=== PATIENT | female | born 1955 | race Caucasian/White ===

== ENCOUNTER 2016-11-21 13:33 | Emergency (ER) | payer OTHER ==
[~2016-11-21] VITALS: Ht 167.6 cm; Wt 70.3 kg
[2016-11-21 13:44] VITALS: BP 144/96; PULSE 78; RESP 16; TEMP 97.4; O2SAT 96
[2016-11-21] MEDS ORDERED: CHOLESTEROL MED (13:56)
[2016-11-21] MEDS ORDERED: LISD1CAP PO (13:56)
[2016-11-21] MEDS ORDERED: METO25TA3 PO (13:56)
[2016-11-21] MEDS ORDERED: VYBRID (13:56)
[2016-11-21] MEDS ORDERED: PROPARACAINE HCL 0.5% OPHT SOLN 15 ML BTL LEFT EYE ONE (14:15)
--- NOTE | 2016-11-21 14:17 | PD ---
HPI Chief Complaint: ENT Complaint Time Seen by Provider: 14:03 Travel History International Travel<30 days: No Contact w/Intl Traveler<30days: No Traveled to known affect area: No History of Present Illness HPI 60yo F with PMH of HTN and HLD presents to the ED with c/o left eye pain after her granddaughter who is 14 months and sitting on her lap and poked her left eye with a straw. Pt states she rinsed out her eye and had tearing after. Pt complains of a foreign body sensation and went to [facility] but they said they dont see eye. Pt then blew her nose and had epistaxis from her right nostril which has stopped. Denies any decreased vision, anticoagulation, fever, chest pain, sob, n/v, abdominal pain. PFSH Past Medical History ADHD: Yes High Cholesterol: Yes Hypertension: Yes Tetanus Vaccination: > 5 Years Influenza Vaccination: No ?: Not Past Surgical History Section: Yes Social History Alcohol Use: Yes (5 BEERS DAILY) Tobacco Use: No Substance Use: No Allergies-Medications (Allergen,Severity, Reaction): Coded Allergies: Codeine (Verified Allergy, Severe, Itching, 11/21/16) Reported Meds & Prescriptions Reported Meds & Active Scripts Active Reported [Cholesterol Med] [Vybrid] Vyvanse (Lisdexamfetamine Dimesylate) 10 Mg Cap Unknown Dose PO DIRECTED Metoprolol Tartrate 25 Mg Tab Unknown Dose PO DIRECTED Review of Systems Except as stated in HPI: all other systems reviewed are Neg Physical Exam Narrative GENERAL: 60yo F in mild distress. SKIN: Focused skin assessment warm/dry. HEAD: Atraumatic. Normocephalic. EYES: Pupils equal and round at 3mm bilaterally. No scleral icterus. No injected conjunctiva. No foreign body under upper and lower eyelids. Vision 20 /25 in both eyes. Wood's lamp exam: +Small semi circular flourescein uptake in mid cornea. ENT: Right nostril: dried blood. No active bleeding. Throat: No blood in pharynx. Throat clear. NECK: Trachea midline. No JVD. CARDIOVASCULAR: Regular rate and rhythm. No murmur appreciated. RESPIRATORY: No accessory muscle use. Clear to auscultation. Breath sounds equal bilaterally. GASTROINTESTINAL: Abdomen soft, non-tender, nondistended. MUSCULOSKELETAL: No obvious deformities. No clubbing. No cyanosis. No edema. NEUROLOGICAL: Awake and alert. No obvious cranial nerve deficits. Motor grossly within normal limits. Normal speech. PSYCHIATRIC: Appropriate mood and affect; insight and judgment normal. Data Data Last Documented VS Vital Signs Date Time Temp Pulse Resp B/P Pulse Ox O2 Delivery O2 Flow Rate FiO2 11/21/16 13:44 97.4 78 16 144/96 96 Orders Proparacaine 0.5% Opth Soln (Alcaine 0.5 (11/21/16 14:15) MDM Medical Decision Making Medical Screen Exam Complete: Yes Emergency Medical Condition: Yes Differential Diagnosis Corneal abrasion vs. foreign body in eye Narrative Course 60yo F with left eye foreign body sensation s/p poked in the eye with a straw today. +Semicircular corneal abrasion seen on wood's lamp. Pt instructed to follow up with ophthalmology in 3-7 days. Return to the ED if symptoms worsen. Diagnosis Primary Impression: Corneal abrasion, left Qualified Code: S05.02XA - Corneal abrasion, left, initial encounter Patient Instructions: General Instructions Departure Forms: Tests/Procedures Additional Instructions: Please follow up with eye doctor in 3-7 days. Return to the ED if symptoms worsen. Med/Other Pt SpecificInfo: Prescription(s) given Scripts Erythromycin Opth Oint 5 Mg/Gm Oint1 Applic LEFT EYE BID 7 Days Ref 0 Prov:Amber Dee DO 11/21/16 Disposition: 01 DISCHARGE HOME Condition: Stable Amber Dee DO November 21, 2016 14:17
[2016-11-21] MEDS ORDERED: ERYTOIN10 LEFT EYE (14:50)
== END 2016-11-21 14:56 | disposition home or self-care (01) ==
LOC: PHED 13:33
DX: S05.02XA Injury of conjunctiva and corneal abrasion without foreign body, left eye, initial encounter (principal); I10 Essential (primary) hypertension; E78.5 Hyperlipidemia, unspecified; R04.0 Epistaxis; Z86.59 Personal history of other mental and behavioral disorders; W22.8XXA Striking against or struck by other objects, initial encounter; Y93.F9 Activity, other caregiving
CPT/HCPCS: 99283